=== PATIENT | male | born 1990 | race American Indian/Alaskan Native ===

== ENCOUNTER 2018-04-11 05:20 | Emergency (ER) | payer OTHER ==
[2018-04-11 05:54] VITALS: BP 117/85
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
== END 2018-04-11 09:47 | disposition home or self-care (01) ==
LOC: ED 05:20
DX: S16.1XXA Strain of muscle, fascia and tendon at neck level, initial encounter (principal); S39.012A Strain of muscle, fascia and tendon of lower back, initial encounter; F12.10 Cannabis abuse, uncomplicated; V49.49XA Driver injured in collision with other motor vehicles in traffic accident, initial encounter; Y93.89 Activity, other specified; Y99.8 Other external cause status; Y92.410 Unspecified street and highway as the place of occurrence of the external cause
CPT/HCPCS: 72040; 72100; 99283

== ENCOUNTER 2020-02-08 09:45 | Emergency (ER) | payer SELFPAY ==
[2020-02-08 09:53] VITALS: BP 106/65
--- NOTE | 2020-02-08 10:40 | Emergency Department Report ---
ED Extremity Problem HPI - General Chief complaint: Extremity Injury, Lower Stated complaint: KNEE INJURY Time Seen by Provider: 02/08/20 10:31 Source: patient Mode of arrival: Ambulatory Limitations: No Limitations - History of Present Illness Initial comments: Patient is a 30-year-old male presents emergency room complaints of bilateral knee pain that began couple days ago. He states that over the weekend he went out and was dancing and overexerting himself. He denies any specific fall or injury. He states that since over the weekend he has had some knee discomfort. He is ambulatory. He denies any numbness or weakness. He denies ever injuring this knee in the past. He denies any past medical history. No allergies to medications. - Related Data Previous Rx's Medication Instructions Recorded Last Taken Type Methocarbamol [Robaxin-750] 750 mg PO Q6HR PRN #20 tablet 04/11/18 Unknown Rx Naproxen [Naprosyn] 500 mg PO BID #20 tablet 04/11/18 Unknown Rx Allergies Allergy/AdvReac Type Severity Reaction Status Date / Time No Known Allergies Allergy Unverified 04/11/18 05:56 ED Review of Systems ROS: Stated complaint: KNEE INJURY Other details as noted in HPI Comment: All other systems reviewed and negative ED Past Medical Hx - Past Medical History Previous Medical History?: No - Surgical History Past Surgical History?: No - Social History Smoking Status: Never Smoker - Medications Home Medications: Home Medications Medication Instructions Recorded Confirmed Last Taken Type Methocarbamol [Robaxin-750] 750 mg PO Q6HR PRN #20 tablet 04/11/18 Unknown Rx Naproxen [Naprosyn] 500 mg PO BID #20 tablet 04/11/18 Unknown Rx ED Physical Exam - General Limitations: No Limitations General appearance: alert, in no apparent distress - Head Head exam: Present: atraumatic, normocephalic - Eye Eye exam: Present: normal appearance - ENT ENT exam: Present: mucous membranes moist - Respiratory Respiratory exam: Absent: respiratory distress, accessory muscle use - Extremities Exam Extremities exam: Present: other (no bony ttp of the BLE, FROM of the BLE, no joint laxity, no edema, no deformity, no ecchymosis, no erythema, no increased warmth, neurovascularly intact) - Neurological Exam Neurological exam: Present: alert, oriented X3 - Psychiatric Psychiatric exam: Present: normal affect, normal mood - Skin Skin exam: Present: warm, dry, intact ED Course Vital Signs 02/08/20 09:50 Temperature 97.8 F Pulse Rate 71 Respiratory 16 Rate Blood Pressure 106/65 O2 Sat by Pulse 98 Oximetry ED Medical Decision Making - Medical Decision Making Patient is a 30-year-old male presents emergency room complaints of bilateral knee pain that began couple days ago. He states that over the weekend he went out and was dancing and overexerting himself. He denies any specific fall or injury. He states that since over the weekend he has had some knee discomfort. He is ambulatory. He denies any numbness or weakness. He denies ever injuring this knee in the past. He denies any past medical history. No allergies to medications. vitals are normal. on exam: no bony ttp of the BLE, FROM of the BLE, no joint laxity, no edema, no deformity, no ecchymosis, no erythema, no increased warmth, neurovascularly intact. Patient has had no traumatic injury, he has no signs of fracture or dislocation. Patient has no clinical signs of DVT, septic joint, gout. Symptoms likely related to overuse from the weekend. Could likely be related to strain on the knees. Advised patient May alternate Tylenol or ibuprofen as needed for discomfort. May use ice pack, rest, elevation of the legs. May use a Christiano bandage [id number] but do not wear too tightly and do not wear at night while sleeping. Follow-up with your primary care doctor. Follow-up with orthopedic doctor. Return to emergency room for any new or worsening symptoms. - Differential Diagnosis Strain, sprain, fracture, dislocation, contusion, tendinitis, arthritis Critical care attestation.: If time is entered above; I have spent that time in minutes in the direct care of this critically ill patient, excluding procedure time. ED Disposition Clinical Impression: Knee pain Qualifiers: Chronicity: acute Laterality: bilateral Qualified Code(s): M25.561 - Pain in right knee Disposition: DC-01 TO HOME OR SELFCARE Is pt being admited?: No Does the pt Need Aspirin: No Condition: Stable Instructions: Knee Sprain (ED) Additional Instructions: May alternate Tylenol or ibuprofen as needed for discomfort. May use ice pack, rest, elevation of the legs. May use a Christiano bandage [id number] but do not wear too tightly and do not wear at night while sleeping. Follow-up with your primary care doctor. Follow-up with orthopedic doctor. Return to emergency room for any new or worsening symptoms. Referrals: DEMETRIA ARREDONDO MD [Staff Physician] - 3-5 Days [facility] [Provider Group] - 3-5 Days CELSO TURK MD [Staff Physician] - 3-5 Days [facility] [Provider Group] - 3-5 Days Forms: Work/School Release Form(ED) Time of Disposition: 10:39 Print Language: MAURITANIAN
== END 2020-02-08 10:56 | disposition home or self-care (01) ==
LOC: ED 09:45
DX: M25.561 Pain in right knee (principal); M25.562 Pain in left knee
CPT/HCPCS: 99281

== ENCOUNTER 2021-07-08 16:50 | Emergency (ER) | payer OTHER ==
[2021-07-08] MEDS ORDERED: IBUPROFEN 800 MG TAB PO ONE (21:44)
--- NOTE | 2021-07-08 22:28 | XRay Report ---
CHEST 1 VIEW, 07/08/2021 9:14 PM CLINICAL INFORMATION/INDICATION: Shortness of breath COMPARISON: None. FINDINGS: SUPPORT DEVICES: None. HEART: The cardiac silhouette is normal in size. LUNGS/PLEURA: The lungs are clear of focal airspace disease or significant pleural effusion. ADDITIONAL FINDINGS: No additional acute findings. IMPRESSION: 1. No evidence of acute cardiopulmonary process. Signer Name: Dafne Grayson MD Signed: 07/08/2021 10:24 PM Workstation Name: [id number]
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
[2021-07-08 23:38] VITALS: BP 118/61
== END 2021-07-08 23:38 | disposition home or self-care (01) ==
LOC: ED 16:50
DX: S43.401A Unspecified sprain of right shoulder joint, initial encounter (principal); S39.012A Strain of muscle, fascia and tendon of lower back, initial encounter; X58.XXXA Exposure to other specified factors, initial encounter; Y93.89 Activity, other specified; Y92.89 Other specified places as the place of occurrence of the external cause; Y99.8 Other external cause status
CPT/HCPCS: 71045; 72100; 99283